=== PATIENT | female | born 1985 | race Caucasian/White ===

== ENCOUNTER 2023-01-26 00:48 | Day surgery (SDC) | payer OTHER, SELFPAY ==
[2023-01-22 15:46] VITALS: BMI 30.4
--- NOTE | 2023-01-22 15:49 | PC.NURSE ---
Report to the Outpatient Waiting Room, entrance under the green pavilion located off [facility], at time 1200 on date 01/26/23. Planned Procedure Time: 1400. Time changes happen often and if your time is changed the preop area will call you the afternoon before. - You and your visitor will be asked to self-screen and do not enter if you have any COVID symptoms. - A mask is optional within the hospital at this time. Patients may have clear liquids (water, carbonated beverages, clear teas, apple juice) until 3 hours prior to surgery with a maximum of 20 ounces. - No food from midnight until time of surgery Take the following medications with a SIP of water the morning of surgery: SERTRALINE DO NOT STOP ANY OF YOUR OTHER PRESCRIPTION MEDICATIONS PRIOR TO SURGERY ?EXCEPT THE FOLLOWING Medications to discontinue per physician: VITAMINS Date to take last dose: 01/22/23 Please no make-up, nail belizean, hairspray, perfume, deodorant, or body powder the day of surgery. No jewelry (including any body piercings) or valuables the day of surgery, leave them at home. Please take a shower or bath the night before, or the morning of, surgery with an antibacterial soap. Wear comfortable, loose fitting clothing. - Jewelry must be removed prior to entering the operating room. Rings and piercings that are not removed may be cut off. - The hospital will not accept responsibility for valuables. - Please leave all valuables, including medications, at home the day of surgery. If you are going home after surgery, a licensed cdl a driver must drive you home. - NO public transportation without another adult if you receive anesthesia. - We recommend that an adult stay with you for 24 hours following discharge. - We also recommend that you do not drive, make important decision, drink alcoholic beverages, or take any drugs that were not prescribed by your health care provider for at least 24 hours after your discharge time. Follow any additional instructions given to you from your surgeon. If you or anyone in your household have experienced Covid symptoms in the past week, please notify your surgeon or the nurse liaison at the phone number below for possible testing. Telephone instructions given to PT - MAK WRAY and asked if any additional questions and then verbalized understanding. Patient advised to call surgeon office or pre surgery nurse liaison [phone] if any additional questions.
[2023-01-26] VITALS (7 sets, daily range): BP systolic 124–137; BP diastolic 74–96; PULSE 62–89; RESP 13–18; TEMP 36.4–37; O2SAT 97–100; BMI 30.2
[2023-01-26] MEDS: SCOPOLAMINE 1.5 MG PATCH TRANSDERM (12:24)
[2023-01-26] MEDS: ACETAMINOPHEN 500 MG TABLET 1000 MG PO (12:25)
[2023-01-26] MEDS: GABAPENTIN 300 MG CAPSULE PO (12:25)
[2023-01-26] MEDS: LACTATED RINGERS 1,000 ML 30 ML IV CONT (12:26)
--- NOTE | 2023-01-26 12:58 | WPDHPUPDATE1 ---
History and Physical Update Update Date/Time: 01/26/23 12:58 History and Physical has been reviewed, including an updated exam of the patient. There are NO changes in the patient's condition. Risks, benefits, and alternatives have been discussed and questions answered. Patient agrees to proceed with procedure.
--- NOTE | 2023-01-26 12:58 | PM.IMHP ---
H&P: HPI History of Present Illness Date/Time: 01/26/23 12:58 Chief Complaint: I'm here for my surgery Narrative: Patient presents desiring permanent sterilization via diagnostic laparoscopy, bilateral salpingectomy. Review of Systems Review of Systems: All systems reviewed & are unremarkable except as noted in HPI and below PMFSH Social History Social History Smoking status: Never smoker Alcohol intake: current Drinks per week: 2 Substance use: never Substance use type: does not use Living arrangements: with family Spiritual care concerns: No Meds Home Medications and Allergies Home Medications Medication Instructions Recorded Confirmed Type multivitamin 1 tablet PO DAILY 01/22/23 01/26/23 History sertraline 50 mg tablet 50 mg PO DAILY 01/22/23 01/26/23 History Allergies Allergy/AdvReac Type Severity Reaction Status Date / Time naproxen [From Aleve] Allergy Hives Verified 01/26/23 12:32 Exam Const: General: comfortable and no acute distress Eyes: General: appearance normal, both eyes and all related structures Resp: Effort & Inspection: normal respiratory effort Auscultation: clear to auscultation bilaterally Cardio: Rate: regular rate Rhythm: regular rhythm GI: GI Palp: Yes Soft to palpation Auscultation: normal bowel sounds Neuro: General: gait normal Speech: normal speech Psych: Mental Status: mental status grossly normal Assessment and Plan Assessment and plan (1) Sterilization: Code(s): Z30.2 - Encounter for sterilization Status: Acute Plan Diagnostic laparoscopy, bilateral salpingectomy
--- NOTE | 2023-01-26 13:39 | WPDANESEPPF ---
Anes - Initial Pre Proc Eval Procedure: Operation Date: 01/26/23 14:00 Proposed Procedures p Diagnostic Laparoscopy Bilateral Salpingectomy - Donna Rosenberg DO Date/Time: 01/26/23 13:39 Surgeon: Donna Rosenberg DO Pre Op Diagnosis: Desires Surgical Sterility Patient Data Age: 38 Gender: F Height: 1.73 m Weight: 90.15 kg Last Vital Signs Temp 36.4 C 01/26/23 12:00 Pulse 71 01/26/23 12:00 Resp 18 01/26/23 12:00 BP 124/74 01/26/23 12:00 Pulse Ox 100 01/26/23 12:00 Allergies Allergy/AdvReac Type Severity Reaction Status Date / Time naproxen [From Aleve] Allergy Hives Verified 01/26/23 12:32 Home Medications Medication Instructions Recorded Confirmed Type multivitamin 1 tablet PO DAILY 01/22/23 01/26/23 History sertraline 50 mg tablet 50 mg PO DAILY 01/22/23 01/26/23 History Patient hx anesthesia problems: none Family hx anesthesia problems: none Results Review: All pre-operative results and documents have been reviewed as part of the pre-operative evaluation. [facility] Past Medical History Medical History (Updated 01/26/23 @ 13:42 by Reza Lopez MD) Anxiety Obesity Surgical History Surgical History H/O wisdom tooth extraction Social History Social History Smoking status: Never smoker Alcohol intake: current Drinks per week: 2 Substance use: never Substance use type: does not use Living arrangements: with family Spiritual care concerns: No Anes - Eval Final PreProcedure Day of Procedure 01/26/23 13:39 Patient weight: obese Heart: regular rate and rhythm Lungs: clear to auscultation Airway: Mallampati scale class II Neurological: alert and oriented Last oral intake: >/= 8 hours ASA classification: II Emergent: no Anesthetic plan: proceed Anesthesia type and monitoring: general ETT and standard monitoring Results Review: All pre-operative results and documents have been reviewed as part of the pre-operative evaluation. Informed Consent: The patient's anesthetic plan and its attendant risks and benefits were discussed with the patient/family/POA. Questions were solicited and answers provided to the satisfaction of the patient/family/POA.
[2023-01-26] MEDS: BUPIVACAINE/EPINEPHRINE 0.5% 50 ML VIAL 30 ML INFILTRATE (15:30)
--- NOTE | 2023-01-26 15:39 | P.OP_ITS ---
Procedure Note - Detailed Date of Procedure 01/26/23 Pre-op Diagnosis Desires Surgical Sterility Post-op Diagnosis Same Procedure Performed Diagnostic laparoscopy, bilateral salpingectomy Surgeon Donna Rosenberg, DO Anesthesia General Indications Desires permanent sterilization Findings Normal appearing vulva and vaginal canal. Medium sized cervix. Uterus sounded to 9 cm. Internally, the liver and intestines were unremarkable. The pelvic organs including uterus, tubes and ovaries were normal. Description of Procedure Patient was taken to the operating room where she was placed under general anesthesia. She was prepped and draped in the normal sterile fashion in a dorsal lithotomy position. A time-out was performed. No preoperative antibiotics were indicated. Speculum was placed in the vagina and the cervix was visualized. The posterior lip was grasped with a long Allis clamp. The cervix was dilated to accommodate a uterine manipulator. The manipulator was placed. The speculum and Allis clamp were removed, gloves were changed and attention was then turned to the abdomen. Skin above the umbilicus was grasped with 2 penetrating towel clamps the area was injected with local and a small incision was made. Veress needle was introduced and the saline water drop test was performed to confirm intraperitoneal placement. The abdomen was brought to a filling pressure of 15 mmHg using CO2 gas. Patient was then placed in steep Trendelenburg position a 5 mm trocar was inserted under direct visualization. Survey of the abdomen revealed no evidence of bowel or vascular injury upon entry. Additional trocar sites in the right and left lower quadrants were identified, injected and incised. 5 mm trocars were inserted under direct visualization. Survey of the abdomen and pelvis revealed the above-mentioned findings. The right tube was then elevated and was cauterized and transected off using LigaSure device. It was passed off through the licensed occupational therapy assistant port. The procedure was repeated in identical fashion on the left-hand side. The pedicles were reinspected and found to be hemostatic. The instruments and trocars were removed from the body the CO2 gas was allowed to escape. Uterine manipulator was removed. The abdominal incisions were closed with subcuticular 4-0 Monocryl and covered with skin glue. Patient was taken to the recovery room in stable condition. All instrument and sponge counts were correct at the conclusion of the procedure. Estimated Blood Loss 5 Drains No Packing No Pathology Yes Complications No immediate complications Condition Stable Disposition PACU
[2023-01-26] MEDS: KETOROLAC 30 MG/ML VIAL (*BKC) IV PUSH (15:40)
== END 2023-01-26 17:32 | disposition home or self-care (01) ==
PROVIDERS: PCP Pediatrics; Visit Provider Obstetrics & Gynecology Gynecologic Oncology
PROC: (CPT 49320; principal; 2023-01-26 14:00)
DX: Z30.2 Encounter for sterilization (principal); F41.9 Anxiety disorder, unspecified; E66.9 Obesity, unspecified; Z68.30 Body mass index [BMI] 30.0-30.9, adult
CPT/HCPCS: 58661; 88302; A9270; J1100; J1200; J1885; J2250; J2405; J2704; J3010; J7030; J7120